=== PATIENT | male | born 1975 | race Caucasian/White ===

== ENCOUNTER 2016-11-30 12:21 | Emergency (ER) | payer OTHER ==
[2016-11-30 12:31] VITALS: BP 117/69; PULSE 79; RESP 18; TEMP 97.8; O2SAT 98
[2016-11-30] MEDS ORDERED: Naproxen 550 mg Tab PO STA (13:18)
[2016-11-30] MEDS ORDERED: Naproxen 550 mg Tab PO ONE (13:41)
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
== END 2016-11-30 14:28 | disposition home or self-care (01) ==
LOC: C.ER 12:21
DX: Z04.3 Encounter for examination and observation following other accident (principal); Y08.89XA Assault by other specified means, initial encounter; Y93.9 Activity, unspecified; Y92.9 Unspecified place or not applicable